=== PATIENT | female | born 1985 | race Caucasian/White ===

== ENCOUNTER 2017-06-02 08:42 | Outpatient (CLI) | payer OTHER ==
[~2017-06-02] VITALS: Ht 172.7 cm; Wt 76.3 kg
[2017-06-02 08:50] VITALS: Ht 172.7 cm; Wt 76.3 kg
[2017-06-02 08:51] VITALS: BP 115/61; PULSE 76; RESP 20
[2017-06-02] MEDS ORDERED: PRENAT PO (08:53)
[2017-06-02] MEDS ORDERED: FERR325C PO (08:53)
--- NOTE | 2017-06-02 09:22 | RADRPT ---
PROCEDURE: US OB biophysical profile. CLINICAL INDICATION: decreased movements, contractions TECHNIQUE: Multiple sonographic images of the pelvis were obtained. The images were reviewed on a PACS workstation. COMPARISON: No prior studies are available for comparison. FINDINGS: There is a single viable intrauterine gestation. Cardiac activity is present with 154 beats per min [place]. There is a posterior fundal presentation. The placenta is anterior. There is no evidence of placental abruption. There is a normal amount of amniotic fluid with an CH[place]MA[place] = 12.6 cm. Biophysical profile: movement 2/2 tone 2/2. breathing 2/2 [place] 2/2 Total 05/30 RPTAT: AA . IMPRESSION: Normal biophysical profile. . .Salvador Vasques MD, Date Time Electronically viewed and signed by .Salvador Vasques MD, MD on 06/02/2017 09:22 .S/
--- NOTE | 2017-06-02 10:47 | TRIAGE ---
OB Triage Datetime Report Generated by CPN: 06/02/2017 10:47 Datetime: 06/02/2017 09:59 Stage of : OB Triage Labor Evaluation Frequency: OCCASIONAL Monitor Mode: External Duration (sec)2399: 50-70 Quality: Mild Pattern: Normal: <= 5 Contractions in 10 Minutes Resting Tone [place]: Relaxed Contraction Comments: PT DENIES FEELING UC'S Heart Rate FHR Baseline Rate: 145 Monitor Mode: External US Variability: Moderate 6-25 bpm Accelerations: 15X15 Decelerations: None Category: Category I Comments: NST REACTIVE FOR GESTATIONAL AGE Datetime: 06/02/2017 08:56 Assessment Type: Triage Maternal Assessment Level of Consciousness: Fully Conscious DTR's/Clonus: DTRs 2+; No Clonus Headache: Denies Blurred Vision: No Respiratory Effort: Unlabored; Regular Rhythm; Equal Expansion Breath Sounds, Left: Clear and Equal Breath Sounds, Right: Clear and Equal Nausea/Vomiting: Denies RUQ Epigastric Pain: Denies Facial Edema: None Fall Risk Assessment History of Falling: (0) No Secondary Diagnosis: (0) No Ambulatory Aid: (0) Bedrest/Nurse Assist IV Therapy: (0) No Gait: (0) Normal/Bedrest/Immobile Mental Status: (0) Oriented to Own Ability Fall Score: 0 Fall Risk Score Definition: No Risk: No action required Datetime: 06/02/2017 08:55 Stage of : OB Triage Assessment Type: Triage Maternal Assessment Level of Consciousness: Fully Conscious DTR's/Clonus: DTRs 2+; No Clonus Headache: Denies Blurred Vision: No Respiratory Effort: Unlabored; Regular Rhythm; Equal Expansion Breath Sounds, Left: Clear and Equal Breath Sounds, Right: Clear and Equal Nausea/Vomiting: Denies RUQ Epigastric Pain: Denies Lower Extremities Edema: None Degree: None Upper Extremities Edema: None Degree: None Facial Edema: None Temperature Route: Axillary Fall Risk Assessment History of Falling: (0) No Secondary Diagnosis: (0) No Ambulatory Aid: (0) Bedrest/Nurse Assist IV Therapy: (0) No Gait: (0) Normal/Bedrest/Immobile Mental Status: (0) Oriented to Own Ability Fall Score: 0 Fall Risk Score Definition: No Risk: No action required Labor Evaluation Frequency: IRREG Monitor Mode: External Duration (sec)2399: 50-80 Quality: Mild Pattern: Normal: <= 5 Contractions in 10 Minutes Resting Tone [place]: Relaxed Heart Rate FHR Baseline Rate: 145 Monitor Mode: External US Variability: Moderate 6-25 bpm Accelerations: 15X15 Decelerations: None Category: Category I Pain Assessment Pain Scale: 0 Pain Presence: None/Denies Pain Type: N/A Datetime: 06/02/2017 08:53 Time of Arrival: 06/02/2017 08:38 EGA: 33.6 Arrived By: Ambulatory Arrived From: Dr. Munguia Chief Complaint: came with orders for nst and npp Movement: Present Contractions: Occasional Contractions: x3/ day Rupture of Membranes: Denies Vaginal Bleeding: None Vaginal Discharge: Denies Recent Sexual Intercouse: Denies Abdominal Trauma: Not Applicable Patient Complaints: Contractions Additional Patient Complaints: gdm diet control Time Provider Notified: 06/02/2017 09:30 Provider Notified: DR. DONATO Initial Plan: nst and bpp call
--- NOTE | 2017-06-03 00:46 | QN ---
Documentation Comment iup 33.6 gdm vss nst reactive a/p iup 33.6 gdm stable dc home MIAH DONATO MD Jun 03, 2017 00:46
== END 2017-06-02 10:20 | disposition home or self-care (01) ==
LOC: OBT 08:42 → L-D 08:43 → OBT 10:20
PROVIDERS: ATTEND Obstetrics & Gynecology
DX: O24.419 Gestational diabetes mellitus in pregnancy, unspecified control (principal); Z3A.33 33 weeks gestation of pregnancy
CPT/HCPCS: 76818; 82962; Z7500; G0463